=== PATIENT | male | born 1940 | race Caucasian/White ===

== ENCOUNTER 2022-09-22 06:17 | Day surgery (SDC) | payer MEDICARE, BC ==
[~2022-09-22] VITALS: Ht 170.2 cm; Wt 75.7 kg
[~2022-09-22 06:17] MED LIST: ADLT ASA LOW81 MG PO; CALCIUM500 M2 PO; FISH OIL1000 M1 PO; MULTIVITAM10 PO; NEURIVA1 CAP PO; NEXIUM40 MG PO; OMEPRAZOLE DR40 MG PO; SAW PALMETTO450 MG PO; VITAMIN D3400 UNIT PO; VYTORIN 10/201 TAB PO; XANAX0.5 MG PO
[2022-09-22 09:40] VITALS: BP 139/82
== END 2022-09-22 09:45 | disposition home or self-care (01) ==
LOC: ORM 06:17
PROVIDERS: ATTEND Urology
PROC: 0VB03ZX Excision of Prostate, Percutaneous Approach, Diagnostic (ICD-10-PCS; principal; 2022-09-22)
DX: C61 Malignant neoplasm of prostate (principal); I10 Essential (primary) hypertension; K21.9 Gastro-esophageal reflux disease without esophagitis; E78.5 Hyperlipidemia, unspecified; Z87.891 Personal history of nicotine dependence
CPT/HCPCS: J1956

== ENCOUNTER 2024-06-10 08:24 | Emergency (ER) | payer MEDICARE, BC ==
[~2024-06-10] VITALS: Ht 170.2 cm; Wt 72.0 kg
[2024-06-10 08:29] VITALS: BP 167/92
[2024-06-10 08:30] VITALS: BP 159/82
[2024-06-10 08:45] VITALS: BP 137/81
[2024-06-10 09:00] VITALS: BP 127/76
[2024-06-10] MEDS ORDERED: PAXLOVID PO (09:12)
[2024-06-10 09:15] VITALS: BP 105/53
[2024-06-10 09:29] VITALS: BP 105/53
== END 2024-06-10 09:37 | disposition home or self-care (01) ==
LOC: ED 08:24
DX: U07.1 COVID-19 (principal); J02.9 Acute pharyngitis, unspecified; R50.9 Fever, unspecified; I10 Essential (primary) hypertension